=== PATIENT | male | born 1975 | race Caucasian/White ===

== ENCOUNTER → 2020-08-11 | Emergency (ER) | payer SELFPAY ==
[~2020-08-11] MED LIST: NITROQUIK SL0.4 MG SL; VICODIN 10/3251 EACH PO; VOLTAREN **OUT75 MG PO; ZOSYN3.375 GM IV
== END | disposition home or self-care (01) ==
LOC: FER 18:36
DX: Z53.8 Procedure and treatment not carried out for other reasons (principal)

== ENCOUNTER 2020-11-09 08:28 | Emergency (ER) | payer OTHER ==
[~2020-11-09 08:28] MED LIST changes: -NITROQUIK SL0.4 MG SL
[2020-11-09 09:22] LABS: BASOPHIL 1.1 % (0-2); EOSINOPHIL 1.8 % (0-5); HCT 42.2 % (42.0-52.0); HGB 14.4 g/dl (13.2-18.0); LYMPHOCYTE 19.5 % (15-48); MCH 28.3 pg (25.0-31.0); MCHC 34.1 g/dL (32.0-36.0); MCV 82.9 fL (78.0-100.0); MONOCYTE 8.1 % (0-12); MPV 9.4 fL (6.0-9.5); NEUTROPHIL 68.9 % (41-80); NRBC 0; PLT 239 K/uL (150-400); RBC 5.09 M/uL (4.70-6.00); RDW 13.2 % (11.5-14.0); WBC 6.6 K/uL (4.0-10.5)
[2020-11-09 09:52] LABS: ALBUMIN 3.8 g/dL (3.4-5.0); BILIRUBIN - TOTAL 0.5 mg/dL (0.2-1.0); BUN/CREAT RATIO (CALC) 20.9 RATIO; CREATININE 0.67 mg/dL (0.67-1.17); GLOBULIN (CALCULATION) 2.9 g/dL; TOTAL PROTEIN 6.7 g/dL (6.4-8.2)
[2020-11-09] MEDS ORDERED: NITROQUIK SL0.4 MG SL (10:07)
== END 2020-11-09 12:06 | disposition home or self-care (01) ==
LOC: FER 08:28
PROVIDERS: Internal Medicine
DX: I20.9 Angina pectoris, unspecified (principal); Z82.49 Family history of ischemic heart disease and other diseases of the circulatory system
CPT/HCPCS: 36415; 71045; 80053; 84484; 85025; 93005